=== PATIENT | female | born 1980 | race Caucasian/White ===

== ENCOUNTER 2018-08-20 09:11 | Outpatient (CLI) | payer MEDICAID ==
--- NOTE | 2018-08-27 10:57 | MMO ---
MAMMOGRAM DIGITAL SCREENING BILATERAL: DATE: 08/26/18 HISTORY: 37-year-old female for routine bilateral screening mammogram. COMPARISON: 05/23/16. TECHNIQUE: Digital mammographic views. Computer-aided detection (CAD) utilized. FINDINGS: Breast density: Heterogeneously dense, which could hide a small mass. No interval change detected in the right breast. Visible only in the current LMLO view, there is a small focal asymmetry in the upper aspect of the le ft breast, middle depth, approximately 5.5 - 6 cm from the nipple. IMPRESSION: 1. BIRADS category 0 - Incomplete. Need additional imaging evaluation. 2. Recommend additional mammographic views of the left breast. Left breast ultrasound should also be performed, if needed, on the same date. 3. This facility will arrange for the additional imaging. ROSIE Moody POS: JEFF
== END 2018-08-20 09:12 | disposition home or self-care (01) ==
LOC: SCSMAMMO 09:11
PROVIDERS: ATTEND Family Medicine
DX: Z12.31 Encounter for screening mammogram for malignant neoplasm of breast (principal)
CPT/HCPCS: 77067

== ENCOUNTER 2018-09-01 08:41 | Outpatient (CLI) | payer OTHER | END 2018-09-01 08:42 | disposition home or self-care (01) | LOC: BICMAMMO 08:41 | PROVIDERS: ATTEND Family Medicine | DX: R92.2 Inconclusive mammogram (principal); Z80.3 Family history of malignant neoplasm of breast | CPT/HCPCS: G0279 ==